=== PATIENT | female | born 1985 | race American Indian/Alaskan Native ===

== ENCOUNTER 2016-08-24 12:53 | Emergency (ER) | payer SELFPAY ==
--- NOTE | 2016-08-24 14:05 | Emergency Department Report ---
Entered by REJI JONES, acting as scribe for YANA SMITH NP. Chief Complaint: Vaginal Bleeding Stated Complaint: SEVERE VAG BLEEDING/CRAMPS Time Seen by Provider: 08/24/16 13:55 - HPI History of Present Illness: Pt c/o severe vaginal bleeding and intermittent abdominal cramping pain. Pt states she's been been bleeding for 1 month. Notes Hx of abnormal periods. +dizziness - nausea and vomiting - rash and sores Denies being . - ROS Review of Systems: All system are negative unless stated in HPI above. - Exam Vital Signs: Vital Signs 08/24/16 13:39 Temperature 98.5 F Pulse Rate 70 Respiratory 16 Rate Blood Pressure 109/70 O2 Sat by Pulse 100 Oximetry Physical Exam: General: well nourished, well developed, 31 year old female in no acute distress and nontoxic in appearance Abdomen: soft, non-distended, and non-tender. MSE screening note: Focused history and physical exam performed. Due to findings the following was ordered: ED Medical Decision Making - Medical Decision Making Patient screened by provider in triage area. Labs sent in for patient. Patient to be seen by MD on main ED side. ED Disposition for MSE Condition: Stable This documentation as recorded by the scribe,REJI JONES,accurately reflects the service I personally performed and the decisions made by me, YANA SMITH, DEEDEE.
[2016-08-24 14:25] LABS: Basophils % (Auto) 0.7 % (0.0-1.8); Eosinophils % (Auto) 2.4 % (0.0-4.3); Hematocrit 45.1 % (30.3-42.9); Hemoglobin 14.3 gm/dl (10.1-14.3); Mean Corpuscular HGB Conc 32 % (30-34); Mean Corpuscular Hemoglobin 27 pg (28-32); Mean Corpuscular Volume 86 fl (79-97); Platelet Count 180 K/mm3 (140-440); Red Blood Count 5.26 M/mm3 (3.65-5.03); Red Cell Distribution Width 14.7 % (13.2-15.2); White Blood Count 4.6 K/mm3 (4.5-11.0)
[2016-08-24 14:45] LABS: Alanine Aminotransferase 9 units/L (7-56); Albumin/Globulin Ratio 1.7 %; Alkaline Phosphatase 65 units/L (35-129); Anion Gap 16 mmol/L; BUN/Creatinine Ratio 8.57; Blood Urea Nitrogen 6 mg/dL (7-17); Calcium 9.2 mg/dL (8.4-10.2); Carbon Dioxide 27 mmol/L (22-30); Chloride 102.4 mmol/L (98-107); Glucose 70 mg/dL (65-100); Potassium 4.3 mmol/L (3.6-5.0); Sodium 141 mmol/L (137-145); Total Protein 6.4 g/dL (6.3-8.2)
--- NOTE | 2016-08-25 01:04 | Emergency Department Report ---
HPI - General Chief Complaint: Vaginal Bleeding Time Seen by Provider: 08/24/16 14:02 - HPI HPI: This is a 31-year-old Afro-[place] female presents to the emergency department with complaint of vaginal bleeding that has been going on since her last menstrual period, around August 02. She's been using about 3 pads per day. It is associated with some intermittent abdominal and/or pelvic cramping. She denies any significant nausea, vomiting, fever, dysuria, vaginal bleeding or discharge. She denies any past medical history. She does not currently have a primary care doctor or [facility] CAREGIVER as she does not currently have insurance. No recent travel or sick contacts at home. She is not taken anything for her symptoms prior to presentation. ED Past Medical Hx - Past Medical History Previous Medical History?: No - Surgical History Past Surgical History?: No - Medications Home Medications: Home Medications Medication Instructions Recorded Confirmed Last Taken Type metroNIDAZOLE [Flagyl] 500 mg PO Q12HR #14 tab 08/25/16 Unknown Rx ED Review of Systems ROS: Stated complaint: SEVERE VAG BLEEDING/CRAMPS Other details as noted in HPI Comment: All other systems reviewed and negative Constitutional: denies: chills, fever Eyes: denies: eye pain, eye discharge, vision change ENT: denies: ear pain, throat pain Respiratory: denies: cough, shortness of breath, wheezing Cardiovascular: denies: chest pain, palpitations Gastrointestinal: abdominal pain. denies: nausea, vomiting Genitourinary: other (vaginal bleeding). denies: dysuria, discharge Musculoskeletal: denies: back pain, joint swelling, arthralgia Skin: denies: rash, lesions Neurological: denies: headache, weakness, paresthesias Physical Exam - Physical Exam Vital Signs: Vital Signs 08/24/16 08/24/16 08/24/16 13:39 20:58 23:20 Temperature 98.5 F 98.2 F Pulse Rate 70 62 Respiratory 16 18 20 Rate Blood Pressure 109/70 109/58 O2 Sat by Pulse 100 100 100 Oximetry Physical Exam: GENERAL: The patient is well-developed well-nourished. HEENT: Normocephalic. Atraumatic. Extraocular motions are intact. Patient has moist mucous membranes. Pupils equal reactive to light bilaterally. NECK: Supple. Trachea is midline. CHEST/LUNGS: Clear to auscultation. There is no respiratory distress noted. HEART/CARDIOVASCULAR: Regular. There is no tachycardia. There is no gallop rub or murmur. ABDOMEN: Abdomen is soft, nontender. Patient has normal bowel sounds. There is no abdominal distention. SKIN: Skin is warm and dry. NEURO: The patient is awake, alert, and oriented. The patient is cooperative. The patient has no focal neurologic deficits. The patient has normal speech. MUSCULOSKELETAL: There is no tenderness or deformity. There is no limitation range of motion. There is no evidence of acute injury. : There is no vaginal or labial lesion seen. Cervical os is closed. There is no visible blood in the vaginal vault. ED Course Vital Signs 08/24/16 08/24/16 08/24/16 13:39 20:58 23:20 Temperature 98.5 F 98.2 F Pulse Rate 70 62 Respiratory 16 18 20 Rate Blood Pressure 109/70 109/58 O2 Sat by Pulse 100 100 100 Oximetry ED Medical Decision Making - Lab Data Result diagrams: 08/24/16 14:05 08/24/16 14:05 - Radiology Data Radiology results: report reviewed Transvaginal ultrasound shows the uterus and the right ovary have a normal appearance. There is a small dominant cyst on left ovary that measures 1 cm. Minimal fluid in the lower pelvis. - Medical Decision Making 31-year-old female presents with prolonged menstrual cycle and/or bleeding since her last menstrual cycle as well as some intermittent cramping pains. Labs are mostly unremarkable and the patient is not . There is no urinary tract infection. Ultrasound shows a left ovarian cyst but otherwise no fibroids or any other significant etiology. A wet prep was done that was positive for bacterial vaginosis and the patient will be started on Flagyl. Otherwise the patient will be encouraged to follow up with a primary care doctor and SENIOR CAREGIVER. Hemoglobin is stable. Vital signs stable throughout her ED course. She will return to the ER with any worsening of her symptoms or any acute distress. - Differential Diagnosis , fibroid, UTI, malignancy, dysfunctional uterine bleeding Critical Care Time: No Critical care attestation.: If time is entered above; I have spent that time in minutes in the direct care of this critically ill patient, excluding procedure time. ED Disposition Clinical Impression: Dysfunctional uterine bleeding, Bacterial vaginosis Disposition: - TO HOME OR SELFCARE Is pt being admited?: No Condition: Stable Instructions: Bacterial Vaginosis (ED), Dysfunctional Uterine Bleeding (ED) Additional Instructions: Please follow-up with an SENIOR CAREGIVER as soon as possible. Return to the emergency department with any worsening of your symptoms or any acute distress. You've been started on a antibiotics called Flagyl for your bacterial vaginosis. This medication has a strong reaction to alcohol and therefore no alcohol should be consumed for up to 2 days after finishing all of the antibiotics, otherwise she will develop nausea and vomiting. Prescriptions: metroNIDAZOLE [Flagyl] 500 mg PO Q12HR #14 tab Referrals: PRIMARY CARE, [Primary Care Provider] - 3-5 Days [facility] [Outside] - 3-5 Days [facility] [Provider Group] - 3-5 Days [facility] [Provider Group] - 3-5 Days Forms: STI Treatment and Prevention Time of Disposition: 02:18
--- NOTE | 2016-08-25 01:46 | Ultrasound Report ---
FINAL REPORT PROCEDURE: US TRANSVAGINAL TECHNIQUE: Real-time transabdominal sonography in multiple planes of the pelvis was performed. The pelvic structures, especially the ovaries were not optimally visualized. Transvaginal sonography was then performed to better evaluate the structures and/or abnormalities described below with image documentation. CPT 79851 and 42655 HISTORY: pelvic pain, abnormal bleeding COMPARISON: No prior studies are available for comparison. FINDINGS: UTERUS Size: 8.6 x 4.3 x 6 cm. Endometrial thickness: 3 mm. Orientation: anteverted. Cervix: Normal. Fibroids/masses: None. RIGHT Ovary: 3.6 x 1.4 x 1.8 cm. Appearance: Normal. LEFT Ovary: 4 x 1.6 x 1.5 cm. Appearance: Small dominant cyst measures 1 centimeter. Pelvic fluid: Minimal fluid in the lower pelvis.. Other: None. IMPRESSION: The uterus and right ovary have a normal appearance. There is a small dominant cyst on the left ovary this measures 1 centimeter. Minimal fluid in the lower pelvis.
--- NOTE | 2016-08-25 01:47 | Ultrasound Report ---
FINAL REPORT PROCEDURE: US TRANSVAGINAL TECHNIQUE: Real-time transabdominal sonography in multiple planes of the pelvis was performed. The pelvic structures, especially the ovaries were not optimally visualized. Transvaginal sonography was then performed to better evaluate the structures and/or abnormalities described below with image documentation. CPT 51652 and 19613 HISTORY: pelvic pain, abnormal bleeding COMPARISON: No prior studies are available for comparison. FINDINGS: UTERUS Size: 8.6 x 4.3 x 6 cm. Endometrial thickness: 3 mm. Orientation: anteverted. Cervix: Normal. Fibroids/masses: None. RIGHT Ovary: 3.6 x 1.4 x 1.8 cm. Appearance: Normal. LEFT Ovary: 4 x 1.6 x 1.5 cm. Appearance: Small dominant cyst measures 1 centimeter. Pelvic fluid: Minimal fluid in the lower pelvis.. Other: None. IMPRESSION: The uterus and right ovary have a normal appearance. There is a small dominant cyst on the left ovary this measures 1 centimeter. Minimal fluid in the lower pelvis.
[2016-08-25 02:12] VITALS: BP 112/68
== END 2016-08-25 02:34 | disposition home or self-care (01) ==
LOC: ED 12:53
DX: N93.8 Other specified abnormal uterine and vaginal bleeding (principal); N76.0 Acute vaginitis
CPT/HCPCS: 36415; 76830; 80053; 81025; 85025; 87210; 87591; 93975; 99284